=== PATIENT | male | born 2000 | race Caucasian/White ===

== ENCOUNTER 2023-07-05 10:40 | Emergency (ER) | payer OTHER, SELFPAY ==
[2023-07-05 10:52] VITALS: BP 147/72; PULSE 60; RESP 14; TEMP 36.4; O2SAT 99; BMI 26.6
--- NOTE | 2023-07-05 11:12 | ED_ITS ---
HPI - Head Injury <NASREEN Maldonado Last Filed: 07/05/23 11:42> General Chief complaint: Head Injury Stated complaint: FALL/ HIT HEAD T-1 SENT BY [facility] Time Seen by Provider: 07/05/23 11:12 Source: patient Mode of arrival: Ambulatory History of Present Illness HPI Narrative: This is a 22-year-old male presenting to the emergency department due to closed head injury yesterday. He was jumping up to catch a basketball when he hit his head against a metal pole. He fell to the ground. He was unsure if he lost conscious. He denies any nausea, vomiting. Reports some ?fuzzy thinking? as well as some mild short-term amnesia. Denies any slurred speech, weakness, facial drooping, or any other concerning signs or symptoms. Related Data Home Medications Medication Instructions Recorded Confirmed No Known Home Medications 07/05/23 07/05/23 Allergies Allergy/AdvReac Type Severity Reaction Status Date / Time No Known Drug Allergies Allergy Verified 07/05/23 10:56 Review of Systems <NASREEN Maldonado Last Filed: 07/05/23 11:42> Review of Systems Narrative: GENERAL: Denies chills, fatigue, malaise, fever, sweats. HEENT: Denies sinus pain, ear pain, sore throat, difficulty swallowing, dizziness. RESPIRATORY: Denies dyspnea, cough, wheezing, hemoptysis, sputum. CARDIOVASCULAR: Denies chest pain, palpitations, orthopnea, edema, GASTROINTESTINAL: Denies nausea, vomiting, abdominal pain, diarrhea, constipation, melena. : Denies dysuria, frequency, incontinence, hematuria, urinary retention. MUSCULOSKELETAL: denies weakness, joint pain, or bony pain SKIN: Denies rash, skin lesions, or other NEUROLOGIC: Reports ?fuzzy thinking? as well as short-term memory loss Denies weakness, headache, numbness, change in speech, confusion, seizures, incoordination. PSYCHIATRIC: No concerning psychosocial issues. 12 point review of systems is negative except for those stated above Patient History <NASREEN Maldonado Last Filed: 07/05/23 11:42> Social History Smoking Status: Current some day smoker Smoking Status: Current some day smoker alcohol intake frequency: 0-2 drinks per day Substance Use Type: does not use Exam <NASREEN Maldonado Last Filed: 07/05/23 11:42> Narrative Exam Narrative: GENERAL: Well-developed patient, in mild distress. HEAD: Atraumatic. Normocephalic. EYES: Pupils equal round and reactive. Extraocular motions intact. No scleral icterus. No injection or drainage. ENT: Nose without bleeding, purulent drainage. Throat without erythema, tonsillar hypertrophy or exudate. Airway patent. NECK: Trachea midline. Non tender EXTREMITIES: No edema or joint tenderness. NEURO: AOx3. Cranial nerves 2-12 intact SKIN: No rash or erythema of visible areas Initial Vital Signs Initial Vital Signs: Vital Signs Temperature 97.6 F 07/05/23 10:52 Pulse Rate 60 07/05/23 10:52 Respiratory Rate 14 07/05/23 10:52 Blood Pressure 147/72 H 07/05/23 10:52 Pulse Oximetry 99 07/05/23 10:52 Oxygen Delivery Method Room Air 07/05/23 10:52 <Michelle Moscoso MD - Last Filed: 07/05/23 11:48> Initial Vital Signs Initial Vital Signs: Vital Signs Temperature 97.6 F 07/05/23 10:52 Pulse Rate 60 07/05/23 10:52 Respiratory Rate 14 07/05/23 10:52 Blood Pressure 147/72 H 07/05/23 10:52 Pulse Oximetry 99 07/05/23 10:52 Oxygen Delivery Method Room Air 07/05/23 10:52 Course <Ryan Mccoy PA-C - Last Filed: 07/05/23 11:42> Vital Signs Vital signs: Vital Signs - 8 hr 07/05/23 10:52 Temperature 97.6 F Pulse Rate 60 Respiratory Rate 14 Blood Pressure 147/72 H Pulse Oximetry 99 Oxygen Delivery Method Room Air <Michelle Moscoso MD - Last Filed: 07/05/23 11:48> Vital Signs Vital signs: Vital Signs - 8 hr 07/05/23 10:52 Temperature 97.6 F Pulse Rate 60 Respiratory Rate 14 Blood Pressure 147/72 H Pulse Oximetry 99 Oxygen Delivery Method Room Air MDM - Head Injury <Ryan Mccoy PA-C - Last Filed: 07/05/23 11:42> MDM Narrative Medical decision making narrative: ED course: This is a 22-year-old male presents to the emergency department due to suspected concussion. Patient was closed in head injury. [place] head CT criteria used which does not recommend head CT. Shared decision-making utilized and no head CT ordered. Patient does not present with any alarming red flag symptoms. Recommended concussion protocol. CC: Closed head injury Complicating co-morbidities: None Data collected from: Previous notes Medical records reviewed: Patient has not been seen here in the past Differential considered, but not limited to: Concussion, closed head injury, subarachnoid hemorrhage, ischemic stroke Exam documented above, pertinent findings include: Reassuring neuro exam Lab Test results independently reviewed as above. Pertinent findings: None obtained Imaging studies independently reviewed: None obtained Scores Used: None MIPS Elements: None Consultations: None Treatments: None Re-evaluations: None Discussion: Discussed plan with the patient was comfortable with the plan Diagnosis: Concussion Disposition: see below, along with detailed discharge instructions that have been reviewed with patient as well as indications for ED re-evaluation and additional outpatient follow up Discharge Plan Departure Patient Disposition: Home Clinical Impression: Concussion Instructions: Concussion Activity Restrictions/Additional Instructions: Thank you for coming to the [facility] Emergency Department today. As we discussed suspect you have a concussion. Please read the attached instructions for ways he can treat your symptoms until the improve. Please return to the emergency department if you develop any nausea or vomiting, facial drooping, weakness, or any other concerning signs or symptoms. I hope you feel better soon. Please follow up with your primary care provider within a week if your symptoms continue. If you do not have a primary care provider please contact the [facility] Resource line at [phone]. They will ask some questions about your medical history and help you get set up with a provider in the community. Prescriptions: No Action No Known Home Medications Referrals: [facility] [Primary Care Provider] - Stand Alone Forms: Patient Portal/API ED Sign-out <Michelle Moscoso MD - Last Filed: 07/05/23 11:48> Cosign ED Attending Cosignature Attestation: I did not see this patient. I was available all times for consultation.
== END 2023-07-05 11:49 | disposition home or self-care (01) ==
PROVIDERS: Emergency Provider Physician Assistant Medical
DX: S06.0X0A Concussion without loss of consciousness, initial encounter (principal); W22.8XXA Striking against or struck by other objects, initial encounter
CPT/HCPCS: 99281